=== PATIENT | female | born 1945 | race Asian ===

== ENCOUNTER 2017-11-15 07:05 | Outpatient (CLI) | payer MEDICARE | END 2017-11-15 07:06 | disposition home or self-care (01) | LOC: BICMAMMO 07:05 | PROVIDERS: ATTEND Internal Medicine | DX: Z12.31 Encounter for screening mammogram for malignant neoplasm of breast (principal); Z13.820 Encounter for screening for osteoporosis; M85.80 Other specified disorders of bone density and structure, unspecified site; M81.0 Age-related osteoporosis without current pathological fracture | CPT/HCPCS: 77063; 77080; G0202; 77067 ==

== ENCOUNTER 2018-04-07 13:41 | Outpatient (CLI) | payer MEDICARE, BC | END 2018-04-07 13:42 | disposition home or self-care (01) | LOC: BICRAD 13:41 | PROVIDERS: ATTEND Internal Medicine | DX: M17.11 Unilateral primary osteoarthritis, right knee (principal); M19.041 Primary osteoarthritis, right hand; M19.071 Primary osteoarthritis, right ankle and foot; R05 Cough | CPT/HCPCS: 71046 ==

== ENCOUNTER 2018-08-04 15:26 | Outpatient (CLI) | payer MEDICARE, BC | END 2018-08-04 15:27 | disposition home or self-care (01) | LOC: BICRAD 15:26 | PROVIDERS: ATTEND Internal Medicine | DX: S99.922A Unspecified injury of left foot, initial encounter (principal) ==

== ENCOUNTER 2018-11-19 09:01 | Outpatient (CLI) | payer MEDICARE, BC | END 2018-11-19 09:02 | disposition home or self-care (01) | LOC: BICMAMMO 09:01 | PROVIDERS: ATTEND Internal Medicine | DX: Z12.31 Encounter for screening mammogram for malignant neoplasm of breast (principal); Z80.3 Family history of malignant neoplasm of breast | CPT/HCPCS: 77063; 77067 ==

== ENCOUNTER 2019-11-20 09:25 | Outpatient (CLI) | payer MEDICARE, BC ==
--- NOTE | 2019-11-20 10:48 | MMO ---
Bilateral MAMMO Bilat Screen [facility]. CLINICAL HISTORY: Patient is 74 years old and is seen for screening. The patient has no personal history of cancer. VIEWS: The views performed were: bilateral craniocaudal with tomosynthesis and bilateral mediolateral oblique with tomosynthesis. FILMS COMPARED: The present examination has been compared to prior imaging studies performed at [facility] on 11/07/2015, 11/08/2016, 11/15/2017 and 11/19/2018. This study has been interpreted with the assistance of computer-aided detection. MAMMOGRAM FINDINGS: There are scattered fibroglandular densities. There are no suspicious masses, suspicious calcifications, or new areas of architectural distortion. IMPRESSION: THERE IS NO MAMMOGRAPHIC EVIDENCE OF MALIGNANCY. A ROUTINE FOLLOW-UP MAMMOGRAM IN 1 YEAR IS RECOMMENDED. THE RESULTS OF THIS EXAM WERE SENT TO THE PATIENT. ACR BI-RADS Category 1 - Negative MAMMOGRAPHY NOTE: 1. A negative mammogram report should not delay a biopsy if a dominant of clinically suspicious mass is present. 2. Approximately 10% to 15% of breast cancers are not detected by mammography. 3. Adenosis and dense breasts may obscure an underlying neoplasm. Reported by: DANIELLE CHAIREZ MD Electonically Signed: [id number]
== END 2019-11-20 09:26 | disposition home or self-care (01) ==
LOC: BICMAMMO 09:25
PROVIDERS: ATTEND Internal Medicine
DX: Z12.31 Encounter for screening mammogram for malignant neoplasm of breast (principal)
CPT/HCPCS: 77063; 77067

== ENCOUNTER 2020-11-22 10:38 | Outpatient (CLI) | payer MEDICARE, BC ==
--- NOTE | 2020-11-22 13:23 | MMO ---
Bilateral MAMMO Bilat Screen [facility]. CLINICAL HISTORY: Patient is 75 years old and is seen for screening. The patient has the following family history of breast cancer: half sister, at age 40, malignant (generic). The patient has no personal history of cancer. VIEWS: The views performed were: bilateral craniocaudal with tomosynthesis and bilateral mediolateral oblique with tomosynthesis. FILMS COMPARED: The present examination has been compared to prior imaging studies performed at [facility] on 11/08/2016, 11/15/2017, 11/19/2018 and 11/20/2019. This study has been interpreted with the assistance of computer-aided detection. MAMMOGRAM FINDINGS: There are scattered fibroglandular densities. There are no suspicious masses, suspicious calcifications, or new areas of architectural distortion. IMPRESSION: THERE IS NO MAMMOGRAPHIC EVIDENCE OF MALIGNANCY. A ROUTINE FOLLOW-UP MAMMOGRAM IN 1 YEAR IS RECOMMENDED. THE RESULTS OF THIS EXAM WERE SENT TO THE PATIENT. ACR BI-RADS Category 1 - Negative MAMMOGRAPHY NOTE: 1. A negative mammogram report should not delay a biopsy if a dominant of clinically suspicious mass is present. 2. Approximately 10% to 15% of breast cancers are not detected by mammography. 3. Adenosis and dense breasts may obscure an underlying neoplasm. Reported by: AMY MEI MD Electonically Signed: [id number]
== END 2020-11-22 10:39 | disposition home or self-care (01) ==
LOC: BICMAMMO 10:38
PROVIDERS: ATTEND Internal Medicine
DX: Z12.31 Encounter for screening mammogram for malignant neoplasm of breast (principal); Z80.3 Family history of malignant neoplasm of breast
CPT/HCPCS: 77063; 77067